=== PATIENT | female | born 1965 | race Hispanic/Latino ===

== ENCOUNTER 2018-05-05 09:00 | Emergency (ER) | payer BC ==
[2018-05-05 09:43] LABS: APPEARANCE,URINE Cloudy (CLEAR); BILIRUBIN,URINE Negative (NEGATIVE); COLOR,URINE Orange (YELLOW); GLUCOSE, URINE (UA) Negative (NEGATIVE); KETONES,URINE Negative (NEGATIVE); LEUKOCYTE ESTERASE ,URINE Large (NEGATIVE); NITRATE,URINE Negative (NEGATIVE); OCCULT BLOOD,URINE Large (NEGATIVE); PH,URINE 7.5 (5.0-8.0); PROTEIN,URINE Trace (NEGATIVE)
[2018-05-05] MEDS ORDERED: KETOROLAC TROMETHAMINE 15MG/ML ONE (09:47)
[2018-05-05] MEDS ORDERED: ONDANSETRON ODT 4 MG TAB ONE (09:48)
[2018-05-05 09:59] LABS: BACTERIA,URINE Moderate /HPF (None Seen); MUCUS,URINE Moderate LPF (None Seen); RBC,URINE TNTC /HPF (0-1); WBC,URINE 51-100 /HPF (0-1)
[2018-05-05] MEDS ORDERED: CEFTRIAXONE SODIUM 1 GM ONE (11:23)
[2018-05-05] MEDS ORDERED: LIDOCAINE HCL-MPF 1% 2ML VIAL ONE (11:23)
== END 2018-05-05 11:41 | disposition home or self-care (01) ==
LOC: EDH 09:00
DX: N12 Tubulo-interstitial nephritis, not specified as acute or chronic (principal); N23 Unspecified renal colic; Z87.442 Personal history of urinary calculi; Z90.710 Acquired absence of both cervix and uterus
CPT/HCPCS: 74176; 81001; 96372 ×2; 99285; J0696; J1885; J3490

== ENCOUNTER 2022-02-21 01:16 | Emergency (ER) | payer BC ==
[~2022-02-21] VITALS: Ht 157.5 cm; Wt 72.1 kg
[2022-02-21 02:17] LABS: BASOPHILS % (AUTO) 0.3 % (0.0-5.0); EOSINOPHILS % (AUTO) 0.6 % (0.0-8.0); HEMATOCRIT 40.8 % (36-48); LYMPHOCYTES % (AUTO) 14.6 % (21.0-51.0); MEAN CORPUSCULAR HEMOGLOBIN 31.3 pg (27.0-33.0); MEAN CORPUSCULAR HGB CONC 35.5 g/dL (32.0-36.0); MEAN CORPUSCULAR VOLUME 88.1 fL (79-99); MONOCYTES % (AUTO) 4.3 % (3.0-13.0); NEUTROPHILS % (AUTO) 79.8 % (40.0-77.0); PLATELET COUNT (AUTO) 309 K/uL (130-400); RED BLOOD CELL COUNT(AUTO) 4.63 MIL/uL (4.00-5.50); RED CELL DISTRIBUTION WIDTH 12.7 % (11.0-15.5); WHITE BLOOD COUNT (AUTO) 10.5 K/uL (4.8-10.8)
[2022-02-21 02:18] LABS: CREATININE 0.8 mg/dL (0.5-1.5); POTASSIUM 3.5 mmol/L (3.5-5.1)
[2022-02-21 02:19] LABS: APPEARANCE,URINE CLOUDY (CLEAR); BILIRUBIN,URINE NEGATIVE (NEGATIVE); COLOR,URINE COLORLESS (YELLOW); GLUCOSE, URINE (UA) TRACE mg/dL (NEGATIVE); KETONES,URINE 10 mg/dL (NEGATIVE); LEUKOCYTE ESTERASE ,URINE 500 Leu/uL (NEGATIVE); NITRATE,URINE NEGATIVE (NEGATIVE); OCCULT BLOOD,URINE LARGE (NEGATIVE); PROTEIN,URINE 10 mg/dL (NEGATIVE); UROBILINOGEN,URINE 0.2 mg/dL (0.2-1.0)
[2022-02-21 02:22] LABS: ALBUMIN 4.4 g/dL (3.5-5.0); TOTAL PROTEIN, SERUM 8.8 g/dL (6.0-8.3)
[2022-02-21 02:23] LABS: BACTERIA,URINE RARE /HPF (None Seen); MUCUS,URINE RARE LPF (None Seen); RBC,URINE TNTC /HPF (0-1); SQUAMOUS EPITHELIAL CELL,UR RARE /HPF (0-2); WBC,URINE 51-100 /HPF (0-1)
[2022-02-21] MEDS ORDERED: MORPHINE 2 MG SYG IM ONE (03:00)
[2022-02-21] MEDS ORDERED: ONDANSETRON 4MG INJ IVP ONE (03:00)
[2022-02-21] MEDS ORDERED: KETOROLAC 30MG VIAL (30MG/ML) IVP ONE (03:00)
[2022-02-21] MEDS ORDERED: 0.9%NACL 1000ML 2,000 ML IV ONE (03:00)
[2022-02-21] MEDS ORDERED: KETOROLAC 30MG VIAL (30MG/ML) ONE (03:39)
[2022-02-21] MEDS ORDERED: MORPHINE 2 MG SYG ONE (03:39)
[2022-02-21] MEDS ORDERED: ONDANSETRON 4MG INJ ONE (03:39)
[2022-02-21] MEDS ORDERED: 0.9%NACL 1000ML 1,000 ML IV ONE (03:39)
[2022-02-21] MEDS ORDERED: ONDA-104 PO (05:04)
[2022-02-21] MEDS ORDERED: TAMS-1 PO (05:04)
[2022-02-21] MEDS ORDERED: IBUP-1493 PO (05:04)
[2022-02-21 05:21] VITALS: BP 139/78
[2022-02-21] MEDS ORDERED: MORPHINE 2 MG SYG IVP ONE (05:30)
== END 2022-02-21 05:29 | disposition home or self-care (01) ==
LOC: EDH 01:16
DX: N20.0 Calculus of kidney (principal); Z88.0 Allergy status to penicillin; Z98.890 Other specified postprocedural states
CPT/HCPCS: 99284; 74176; 96374; 96375; 96361; 84484; 80053; 83690; 85025; 87088; 81001; 36415; 96376; 93005; 96372; J7030 ×2; J2405; J1885

== ENCOUNTER 2023-04-26 16:29 | Emergency (ER) | payer BC ==
[~2023-04-26] VITALS: Ht 157.5 cm; Wt 65.8 kg
[~2023-04-26 16:29] MED LIST: IBUP-1493 PO; ONDA-104 PO; TAMS-1 PO
[2023-04-26 18:10] LABS: BASOPHILS # (AUTO) 0.04 K/uL (0.00-0.20); BASOPHILS % (AUTO) 0.2 % (0.0-5.0); EOSINOPHILS # (AUTO) 0.01 K/uL (0.00-0.70); HEMATOCRIT 34.1 % (36-48); LYMPHOCYTES # (AUTO) 1.4 K/uL (1.0-4.8); LYMPHOCYTES % (AUTO) 6.6 % (21.0-51.0); MEAN CORPUSCULAR HEMOGLOBIN 31.5 pg (27.0-33.0); MEAN CORPUSCULAR HGB CONC 34.3 g/dL (32.0-36.0); MEAN CORPUSCULAR VOLUME 91.7 fL (79-99); MONOCYTES # (AUTO) 1.5 K/uL (0.1-1.0); MONOCYTES % (AUTO) 6.9 % (3.0-13.0); NEUTROPHILS # (AUTO) 18.2 K/uL (1.8-7.7); NEUTROPHILS % (AUTO) 85.4 % (40.0-77.0); PLATELET COUNT (AUTO) 490 K/uL (130-400); RED BLOOD CELL COUNT(AUTO) 3.72 MIL/uL (4.00-5.50); RED CELL DISTRIBUTION WIDTH 12.7 % (11.0-15.5); WHITE BLOOD COUNT (AUTO) 21.4 K/uL (4.8-10.8)
[2023-04-26 18:21] LABS: POTASSIUM 3.9 mmol/L (3.5-5.1)
[2023-04-26 18:26] LABS: BILIRUBIN,TOTAL 0.7 mg/dL (0.2-1.0); TOTAL PROTEIN, SERUM 8.5 g/dL (6.0-8.3)
[2023-04-26 19:00] LABS: APPEARANCE,URINE CLOUDY (CLEAR); BILIRUBIN,URINE NEGATIVE (NEGATIVE); COLOR,URINE YELLOW (YELLOW); GLUCOSE, URINE (UA) NEGATIVE (NEGATIVE); KETONES,URINE NEGATIVE (NEGATIVE); LEUKOCYTE ESTERASE ,URINE 500 Leu/uL (NEGATIVE); NITRATE,URINE NEGATIVE (NEGATIVE); OCCULT BLOOD,URINE NEGATIVE (NEGATIVE); PH,URINE 6.5 (5.0-8.0); PROTEIN,URINE 20 mg/dL (NEGATIVE); UROBILINOGEN,URINE 0.2 mg/dL (0.2-1.0)
[2023-04-26 19:01] LABS: ADD UA MICROSCOPIC YES
[2023-04-26 19:04] LABS: BACTERIA,URINE MOD /HPF (None Seen); MUCUS,URINE FEW LPF (None Seen); SQUAMOUS EPITHELIAL CELL,UR FEW /HPF (0-2); WBC,URINE TNTC /HPF (0-1)
[2023-04-26] MEDS ORDERED: KETOROLAC 15MG/ML VIAL (15MG/ML) IV ONE (20:00)
[2023-04-26] MEDS ORDERED: LEVOFLOXACIN 500 MG/D5W 100 ML 100 ML IV SCH (20:00)
[2023-04-26] MEDS ORDERED: ACETAMINOPHEN 500 MG TABLET PO ONE (20:00)
[2023-04-26] MEDS ORDERED: 0.9%NACL 1000ML 1,000 ML IV ONE (20:00)
[2023-04-26] MEDS ORDERED: ONDANSETRON 4MG INJ IVP ONE (20:00)
[2023-04-26] MEDS ORDERED: TAMS-1 PO (22:07)
[2023-04-26] MEDS ORDERED: LEVO750T68 PO (22:07)
[2023-04-26] MEDS ORDERED: TAMSULOSIN HCL 0.4 MG CAP.ER.24H PO ONE (22:30)
[2023-04-26 22:41] VITALS: BP 110/60; PULSE 78; RESP 14; O2SAT 97
== END 2023-04-26 22:51 | disposition home or self-care (01) ==
LOC: EDH 16:29
DX: N13.2 Hydronephrosis with renal and ureteral calculous obstruction (principal); D72.829 Elevated white blood cell count, unspecified; Z87.442 Personal history of urinary calculi; Z79.899 Other long term (current) drug therapy; Z98.890 Other specified postprocedural states; Z90.710 Acquired absence of both cervix and uterus; Z88.0 Allergy status to penicillin
CPT/HCPCS: 99284; 74176; 96365; 96375; 80053; 85025; 87040 ×2; 87077; 87088; 87186; 83605; 81001; 36415; J1956; J7030; J2405; J1885

== ENCOUNTER → 2023-06-07 | Outpatient (CLI) | payer BC ==
[~2023-06-07] MED LIST changes: +LEVO750T68 PO
== END | disposition home or self-care (01) ==
LOC: RAH 13:55
PROVIDERS: ATTEND Family Medicine
DX: N13.30 Unspecified hydronephrosis (principal)
CPT/HCPCS: 74176

== ENCOUNTER → 2023-06-19 | Outpatient (CLI) | payer BC ==
[~2023-06-19] MED LIST changes: +CEPH500B PO; +DENO60DI SQ; -LEVO750T68 PO
== END | disposition home or self-care (01) ==
LOC: RAH 14:16
PROVIDERS: ATTEND Urology
DX: N20.0 Calculus of kidney (principal)
CPT/HCPCS: 74018; 76100